=== PATIENT | female | born 1965 | race Asian ===

== ENCOUNTER → 2016-07-31 | Outpatient (CLI) | payer OTHER ==
[~2016-07-31] MED LIST: ALLEGRA-D 12 HO1 TER PO; ALPRAZOLAM0.5 MG PO; AMBIEN CR12.5 MG PO; AMITRIPTYLINE10 MG PO; IMITREX100 MG PO; PRISTIQ50 M1 PO; RESTORIL30 MG PO; ULTRAM 50MG TAB50 MG PO; ZOLPIDEM10 MG PO
== END ==
LOC: BHSO 08:51
DX: F41.1 Generalized anxiety disorder (principal)

== ENCOUNTER → 2016-12-21 | Outpatient (CLI) | payer OTHER | LOC: BHSO 08:52 | DX: F41.1 Generalized anxiety disorder (principal) ==

== ENCOUNTER → 2017-06-21 | Outpatient (CLI) | payer BC | LOC: BHSO 09:50 | DX: F41.1 Generalized anxiety disorder (principal) | CPT/HCPCS: G0463 ==

== ENCOUNTER → 2017-12-13 | Outpatient (CLI) | payer BC | LOC: BHSO 10:15 | DX: F33.42 Major depressive disorder, recurrent, in full remission (principal) | CPT/HCPCS: G0463 ==

== ENCOUNTER → 2018-08-22 | Outpatient (CLI) | payer SELFPAY | LOC: BHSO 10:21 | DX: F41.1 Generalized anxiety disorder (principal) | CPT/HCPCS: G0463 ==

== ENCOUNTER → 2019-03-13 | Outpatient (CLI) | payer SELFPAY | LOC: BHSO 11:18 | DX: F41.1 Generalized anxiety disorder (principal) | CPT/HCPCS: G0463 ==

== ENCOUNTER → 2019-10-09 | Outpatient (CLI) | payer SELFPAY | LOC: BHSO 12:58 | DX: F33.42 Major depressive disorder, recurrent, in full remission (principal) | CPT/HCPCS: G0463 ==